=== PATIENT | female | born 1995 | race Caucasian/White ===

== ENCOUNTER 2018-03-22 18:33 | Emergency (ER) | payer OTHER ==
[2018-03-22 21:36] LABS: ADD UMIC NO; UR ASCORBIC ACID NEGATIVE (NEGATIVE); UR BILIRUBIN (Dip) NEGATIVE (NEGATIVE); UR BLOOD (Dip) NEGATIVE (NEGATIVE); UR CLARITY SLIGHTLY CLOUDY (CLEAR); UR COLOR YELLOW (YELLOW); UR GLUCOSE (Dip) NEGATIVE (NEGATIVE); UR KETONES (Dip) TRACE mg/dL (NEGATIVE); UR LEUKOCYTE ESTERASE (Dip) NEGATIVE Leu/ul (NEGATIVE); UR MUCUS FEW /HPF (NONE SEEN); UR NITRITE (Dip) NEGATIVE (NEGATIVE); UR RBC 10 /HPF (0-5); UR SPECIFIC GRAVITY (Dip) 1.025 (1.003-1.030); UR SQUAMOUS EPITHELIAL CELL FEW /HPF (FEW); UR TOTAL PROTEIN (Dip) NEGATIVE (NEGATIVE); UR UROBILINOGEN (Dip) NEGATIVE (NEGATIVE); UR WBC 3 /HPF (0-5)
[2018-03-22] MEDS: SOD CHLORIDE 0.9% 1,000 ML IV (21:46)
[2018-03-22] MEDS: ONDANSETRON 4 MG INJ IV (21:46)
[2018-03-22] MEDS: ACETAMINOPHEN 325 MG TAB PO (21:46)
[2018-03-22 21:47] LABS: ADD MAN DIFF? NO
[2018-03-22 21:54] LABS: WHITE BLOOD COUNT 12.4 10^3/ul (4.8-10.8)
[2018-03-22 21:54] LABS: BASOPHILS % 0.2 % (0.0-2.0); HEMOGLOBIN 13.2 g/dl (12.0-16.0); LYMPHOCYTES # 0.7 10^3/ul (0.8-2.9); LYMPHOCYTES % 5.5 % (15.0-51.0); MEAN CORPUSCULAR HGB CONC 34.7 g/dl (32.0-37.0); MEAN CORPUSCULAR VOLUME 86.4 fl (82.0-101.0); MEAN PLATELET VOLUME 9.8 fl (7.4-10.4); MONOCYTE # 0.4 10^3/ul (0.3-0.9); MONOCYTES % 3.6 % (0.0-11.0); NEUTROPHIL # 11.2 10^3/ul (1.6-7.5); NEUTROPHILS % 90.3 % (39.0-77.0); PLATELET COUNT 246 10^3/UL (140-415); RED CELL DISTRIBUTION WIDTH 12.3 % (11.5-14.5)
[2018-03-22 22:14] LABS: SODIUM 135 mmol/L (135-144)
[2018-03-22 22:15] LABS: ALANINE AMINOTRANSFERASE 24 IU/L (13-69); ALBUMIN 3.3 g/dl (3.3-4.9); ALBUMIN/GLOBULIN RATIO 0.94; ALKALINE PHOSPHATASE 55 IU/L (42-121); ANION GAP 12 (8-16); ASPARTATE AMINO TRANSFERASE 20 IU/L (15-46); BILIRUBIN,INDIRECT 0.5 mg/dl (0-1.1); BILIRUBIN,TOTAL 0.5 mg/dl (0.2-1.3); BLOOD UREA NITROGEN 7 mg/dl (7-20); CARBON DIOXIDE 22 mmol/L (21-31); CHLORIDE 104 mmol/L (97-110); CREATININE 0.42 mg/dl (0.44-1.00); GLUCOSE 95 mg/dl (70-220); POTASSIUM 3.4 mmol/L (3.5-5.1); TOTAL PROTEIN 6.8 g/dl (6.1-8.1)
== END 2018-03-23 00:33 | disposition home or self-care (01) ==
LOC: FTE 03-23 00:33
DX: O21.9 Vomiting of pregnancy, unspecified (principal); Z3A.14 14 weeks gestation of pregnancy
CPT/HCPCS: 36415; 76805; 80053; 81001; 81003; 84702; 85025; 86900; 86901; 96361; 96374; 99285-25

== ENCOUNTER 2018-09-22 08:09 | Inpatient (IN) | payer OTHER ==
[2018-09-22] MEDS ORDERED: OXYTOCIN 30 UNITS/LR 500 ML IV ×2 (09:00→15:30)
[2018-09-22] MEDS ORDERED: CARBOPROST 250 MCG INJ IM ×2 (09:00→15:30)
[2018-09-22] MEDS ORDERED: METHYLERGONOVINE 0.2 MG INJ IM ×2 (09:00→15:30)
[2018-09-22] MEDS ORDERED: MISOPROSTOL 200 MCG TAB PR ×2 (09:00→15:30)
[2018-09-22] MEDS: LACTATED RINGER'S 1,000 ML IV ×2 (09:10→10:09)
[2018-09-22 09:24] LABS: ADD MAN DIFF? NO
[2018-09-22 09:29] LABS: WHITE BLOOD COUNT 9.2 10^3/ul (4.8-10.8)
[2018-09-22 09:29] LABS: BASOPHIL # 0.1 10^3/ul (0.0-0.1); BASOPHILS % 0.5 % (0.0-2.0); EOSINOPHILS # 0.1 10^3/ul (0.0-0.5); EOSINOPHILS % 0.7 % (0.0-7.0); HEMATOCRIT 41.2 % (37.0-47.0); HEMOGLOBIN 13.7 g/dl (12.0-16.0); LYMPHOCYTES # 2.4 10^3/ul (0.8-2.9); MEAN CORPUSCULAR HEMOGLOBIN 28.4 pg (29.0-33.0); MEAN CORPUSCULAR HGB CONC 33.3 g/dl (32.0-37.0); MEAN CORPUSCULAR VOLUME 85.3 fl (82.0-101.0); MEAN PLATELET VOLUME 10.6 fl (7.4-10.4); MONOCYTE # 0.6 10^3/ul (0.3-0.9); MONOCYTES % 6.5 % (0.0-11.0); NEUTROPHILS % 65.4 % (39.0-77.0); PLATELET COUNT 283 10^3/UL (140-415); RED BLOOD COUNT 4.83 10^6/ul (4.20-5.40)
[2018-09-22 09:50] LABS: INR 0.89; PROTIME 12.2 Sec (11.9-14.9)
[2018-09-22 09:51] LABS: PARTIAL THROMBOPLASTIN TIME 30.3 Sec (23.0-35.0)
[2018-09-22] MEDS ORDERED: ONDANSETRON 4 MG INJ (10:15)
[2018-09-22] MEDS ORDERED: DEXAMETHASONE 4 MG/ML 1 ML INJ (10:15)
[2018-09-22 10:21] LABS: HEPATITIS B SURFACE ANTIGEN NEGATIVE (NEGATIVE)
[2018-09-22] MEDS ORDERED: morphine SULFATE/PF (10 MG/10 ML) INJ (11:01)
[2018-09-22] MEDS ORDERED: NALOXONE (0.4 MG/ML) INJ IV (11:30)
[2018-09-22] MEDS ORDERED: HYDROmorphONE 0.5 MG/0.5 ML SYG IV ×2 (11:30)
[2018-09-22] MEDS ORDERED: ZOLPIDEM 5 MG TAB PO (11:30)
[2018-09-22] MEDS ORDERED: DIPHENHYDRAMINE 50 MG INJ IV (11:30)
[2018-09-22] MEDS: OXYTOCIN 30 UNITS/LR 500 ML IV ×2 (11:36→16:09)
[2018-09-22] MEDS: CEFAZOLIN 2 GM/50 ML (PMX) 50 ML IVPB (12:20)
[2018-09-22] MEDS: KETOROLAC 30 MG INJ IV (14:24)
[2018-09-22] MEDS ORDERED: NACL 0.9% 3 ML SYG IV (15:30)
[2018-09-22] MEDS ORDERED: NA PHOSPHATE/BIPHOS 133 ML ENEMA PR (15:30)
[2018-09-22 16:02] LABS: RAPID PLASMA REAGIN NONREACTIVE (NR)
[2018-09-22] MEDS: ONDANSETRON 4 MG INJ IV (16:06)
[2018-09-23] MEDS: LACTATED RINGER'S 1,000 ML IV (02:34)
[2018-09-23] MEDS: KETOROLAC 30 MG INJ IV ×2 (03:47→09:33)
[2018-09-23 08:44] LABS: ADD MAN DIFF? NO
[2018-09-23 08:50] LABS: BASOPHIL # 0.1 10^3/ul (0.0-0.1); BASOPHILS % 0.4 % (0.0-2.0); EOSINOPHILS % 0.1 % (0.0-7.0); HEMATOCRIT 34.8 % (37.0-47.0); HEMOGLOBIN 11.5 g/dl (12.0-16.0); LYMPHOCYTES # 2.3 10^3/ul (0.8-2.9); LYMPHOCYTES % 19.5 % (15.0-51.0); MEAN CORPUSCULAR HEMOGLOBIN 29.1 pg (29.0-33.0); MEAN CORPUSCULAR VOLUME 88.1 fl (82.0-101.0); MEAN PLATELET VOLUME 10.6 fl (7.4-10.4); MONOCYTES % 8.2 % (0.0-11.0); NEUTROPHIL # 8.2 10^3/ul (1.6-7.5); NEUTROPHILS % 71.1 % (39.0-77.0); PLATELET COUNT 227 10^3/UL (140-415); RED BLOOD COUNT 3.95 10^6/ul (4.20-5.40); RED CELL DISTRIBUTION WIDTH 13.1 % (11.5-14.5)
[2018-09-23 08:50] LABS: WHITE BLOOD COUNT 11.6 10^3/ul (4.8-10.8)
[2018-09-23 10:40] LABS: AMPHETAMINE/METHAMPHETAMINE Negative (NEGATIVE); BARBITURATES Negative (NEGATIVE); BENZODIAZEPINES Negative (NEGATIVE); CANNABINOIDS Negative (NEGATIVE); COCAINE Negative (NEGATIVE); OPIATES Negative (NEGATIVE)
[2018-09-23] MEDS: IBUPROFEN 800 MG TAB PO ×2 (14:15→23:16)
[2018-09-23] MEDS: HYDROCODONE/APAP (5/325) TAB PO (20:06)
[2018-09-24] MEDS: HYDROCODONE/APAP (5/325) TAB PO ×3 (03:42→18:41)
[2018-09-24] MEDS: IBUPROFEN 800 MG TAB PO ×3 (05:37→21:20)
[2018-09-24] MEDS: LANOLIN HPA 1 PKT TOP (08:11)
[2018-09-25] MEDS: HYDROCODONE/APAP (5/325) TAB PO ×2 (04:31→10:36)
[2018-09-25] MEDS: IBUPROFEN 800 MG TAB PO (05:35)
[2018-09-25] MEDS: DIPHTH/TET/ACEL PERTUSS (ADULT) 0.5 ML VIAL IM* (09:00)
[2018-09-25] MEDS: MEASLES,MUMPS,RUBELLA VACCINE INJ SC* (09:00)
== END 2018-09-25 12:33 | disposition home or self-care (01) | DRG 788 ==
LOC: L-D 08:09 → PP1 14:55
PROVIDERS: Obstetrics & Gynecology
PROC: 10D00Z1 Extraction of Products of Conception, Low, Open Approach (ICD-10-PCS; principal; 2018-09-22 15:30)
PROC: 3E033VJ Introduction of Other Hormone into Peripheral Vein, Percutaneous Approach (ICD-10-PCS; 2018-09-22 15:30)
DX: O65.5 Obstructed labor due to abnormality of maternal pelvic organs (principal); O34.211 Maternal care for low transverse scar from previous cesarean delivery; Z3A.39 39 weeks gestation of pregnancy; Z37.0 Single live birth
CPT/HCPCS: 80307; 85025; 85610; 85730; 86592; 86850; 86900; 86901; 87340; 99464